=== PATIENT | female | born 1955 | race Caucasian/White ===

== ENCOUNTER 2020-09-16 16:01 | Inpatient (IN) ==
[2020-09-16] MEDS ORDERED: INFLUENZA VIRUS VACCINE 0.5 ML SYRINGE IM ONE (18:55)
[2020-09-16] MEDS ORDERED: oxyCODONE/ACETAMINOPHEN 5-325 MG TABLET PO PRN (20:06)
[2020-09-16] MEDS ORDERED: DEXTROSE 50% 25 GM/50 ML VIAL IV PRN (20:08)
[2020-09-16] MEDS ORDERED: GLUCAGON 1 MG VIAL IM PRN (20:08)
[2020-09-16] MEDS ORDERED: POTASSIUM CHLORIDE 20 MEQ TABLET PO ONE (20:09)
[2020-09-16] MEDS ORDERED: KETOROLAC 15 MG/1 ML VIAL IM PRN (20:47)
[2020-09-16] MEDS ORDERED: INSULIN GLARGINE 100 UNIT/ML SUBCUT SCH (21:00)
[2020-09-16] MEDS ORDERED: methylPREDNISolone SOD SUC 40 MG/1 ML VIAL IM SCH (21:00)
[2020-09-16] MEDS: APIXABAN 5 MG TABLET PO SCH (21:58)
[2020-09-16] MEDS: BUDESONIDE/FORMOTEROL 160-4.5 INHALER 6 GM INH SCH (22:00)
[2020-09-16] MEDS: SODIUM CHLORIDE 0.9% 1,000 ML IV SCH (22:02)
[2020-09-17] MEDS: methylPREDNISolone SOD SUC 40 MG/1 ML VIAL IV SCH ×3 (00:01→13:10)
[2020-09-17] MEDS: ALBUTEROL/IPRATROPIUM 3 ML NEB RESP TX SCH ×4 (01:30→20:25)
[2020-09-17 07:17] LABS: Basophils % 0.1 % (0.0-0.8); Hematocrit 33.2 VOL% (35.7-47.0); Hemoglobin 11.1 GM/DL (12.0-16.0); Immature Granulocytes % 0.7 %; Immature Granulocytes Absolute 0.07 #; Lymphocytes # 0.7 10*3/uL (1.4-4.0); Lymphocytes % 7.4 % (21.3-54.2); Mean Corpuscular HGB Conc 33.4 GM/DL (32-36); Mean Corpuscular Volume 88.3 FL (87-102); Mean Platelet Volume 11.3 FL (9.6-12.0); Monocytes % 2.8 % (1.7-12.7); Platelet Count 113 T/CUMM (130-400); Red Blood Count 3.76 MC/CUMM (3.8-5.5); Red Cell Distribution Width 13.4 % (9.3-17.3); White Blood Count 9.7 T/CUMM (4-12)
[2020-09-17 07:23] LABS: Bilirubin,Total 1.2 MG/DL (0.2-1.0); Calcium 8.4 MG/DL (8.5-10.1); Osmolality,Calculated 270.5 MOS/KG (273-304); Total Protein 7.1 G/DL (6.4-8.3)
[2020-09-17] MEDS ORDERED: INSULIN LISPRO 100 UNIT/ML SUBCUT SCH (08:00)
[2020-09-17] MEDS ORDERED: CLOPIDOGREL 75 MG TABLET PO SCH (09:00)
[2020-09-17] MEDS ORDERED: FUROSEMIDE 20 MG TABLET PO SCH (09:00)
[2020-09-17] MEDS: glipiZIDE 10 MG TABLET PO SCH (09:02)
[2020-09-17] MEDS: APIXABAN 5 MG TABLET PO SCH ×2 (09:02→22:22)
[2020-09-17] MEDS: AZITHROMYCIN 250 MG TABLET PO SCH (09:03)
[2020-09-17] MEDS: INSULIN LISPRO 100 UNIT/ML SUBCUT SCH ×3 (09:03→16:54)
[2020-09-17] MEDS: amLODIPine 10 MG TABLET PO SCH (09:03)
[2020-09-17] MEDS: PANTOPRAZOLE 40 MG TABLET PO SCH (09:03)
[2020-09-17] MEDS: PARoxetine 20 MG TABLET PO SCH (09:03)
[2020-09-17] MEDS: BUDESONIDE/FORMOTEROL 160-4.5 INHALER 6 GM INH SCH ×2 (09:04→22:23)
[2020-09-17] MEDS: oxyCODONE/ACETAMINOPHEN 5-325 MG TABLET PO PRN ×2 (10:18→22:23)
[2020-09-17] MEDS ORDERED: DEXTROSE 50% 25 GM/50 ML VIAL IV PRN (10:54)
[2020-09-17] MEDS: SODIUM CHLORIDE 0.9% 1,000 ML IV SCH (12:05)
[2020-09-17] MEDS ORDERED: PNEUMOCOCCAL VACCINE (13 VALENT) 0.5 ML SYRINGE IM ONE (16:00)
[2020-09-17] MEDS: INSULIN GLARGINE 100 UNIT/ML SUBCUT SCH (22:22)
[2020-09-18] MEDS: ALBUTEROL/IPRATROPIUM 3 ML NEB RESP TX SCH ×4 (01:48→19:26)
[2020-09-18] MEDS: INSULIN LISPRO 100 UNIT/ML SUBCUT SCH ×3 (09:23→18:02)
[2020-09-18] MEDS: AZITHROMYCIN 250 MG TABLET PO SCH (09:23)
[2020-09-18] MEDS: PANTOPRAZOLE 40 MG TABLET PO SCH (09:23)
[2020-09-18] MEDS: APIXABAN 5 MG TABLET PO SCH ×2 (09:23→22:28)
[2020-09-18] MEDS: glipiZIDE 10 MG TABLET PO SCH (09:23)
[2020-09-18] MEDS: oxyCODONE/ACETAMINOPHEN 5-325 MG TABLET PO PRN (09:24)
[2020-09-18] MEDS: PARoxetine 20 MG TABLET PO SCH (09:24)
[2020-09-18] MEDS: amLODIPine 10 MG TABLET PO SCH (09:24)
[2020-09-18] MEDS: ASPIRIN EC 81 MG TABLET PO SCH (09:25)
[2020-09-18] MEDS: BUDESONIDE/FORMOTEROL 160-4.5 INHALER 6 GM INH SCH ×2 (09:31→22:29)
[2020-09-18] MEDS ORDERED: PREGABALIN 100 MG CAPSULE PO ONE ×2 (20:28→21:00)
[2020-09-18] MEDS: ROSUVASTATIN 10 MG TABLET PO SCH (22:28)
[2020-09-18] MEDS: INSULIN GLARGINE 100 UNIT/ML SUBCUT SCH (22:29)
[2020-09-18] MEDS ORDERED: ONDANSETRON 4 MG/2 ML VIAL IV PRN (23:42)
[2020-09-19 00:02] LABS: ABG Base Excess 6.2 MMOL/L (-2.5-2.5); ABG HCO3 29.4 MMOL/L (20-26); ABG Oxygen Saturation 84.5 % (95-100); ABG PCO2 37.3 MM HG (35-48); ABG PH 7.515 (7.35-7.45); ABG PO2 44.2 MM HG (80-95); ABG TCO2 30.6 MMOL/L (23-27)
[2020-09-19] MEDS ORDERED: ACETAMINOPHEN 500 MG TABLET PO PRN (00:36)
[2020-09-19] MEDS: ALBUTEROL/IPRATROPIUM 3 ML NEB RESP TX SCH ×4 (01:08→19:25)
[2020-09-19 01:20] LABS: Calcium 8.8 MG/DL (8.5-10.1); Osmolality,Calculated 280.8 MOS/KG (273-304)
[2020-09-19 01:23] LABS: Risk Ratio 2.48; VLDL CHOLESTEROL 15.8 MG/DL
[2020-09-19 02:00] LABS: Basophils % 0.1 % (0.0-0.8); Eosinophils % 0.2 % (0.00-10.9); Hematocrit 34.3 VOL% (35.7-47.0); Immature Granulocytes % 1.6 %; Immature Granulocytes Absolute 0.19 #; Lymphocytes # 1.1 10*3/uL (1.4-4.0); Lymphocytes % 8.6 % (21.3-54.2); Mean Corpuscular HGB Conc 32.1 GM/DL (32-36); Mean Corpuscular Volume 91.7 FL (87-102); Monocytes % 8.2 % (1.7-12.7); Neutrophils % 81.3 % (38.7-73.9); Platelet Count 112 T/CUMM (130-400); Red Blood Count 3.74 MC/CUMM (3.8-5.5); Red Cell Distribution Width 14.4 % (9.3-17.3); White Blood Count 12.2 T/CUMM (4-12)
[2020-09-19] MEDS ORDERED: cefTRIAXone 1,000 MG in SYRINGE 1 EACH IV SCH (05:00)
[2020-09-19 05:39] LABS: ABG Base Excess 5.8 MMOL/L (-2.5-2.5); ABG HCO3 29.7 MMOL/L (20-26); ABG Oxygen Saturation 98.4 % (95-100); ABG PCO2 43.4 MM HG (35-48); ABG PH 7.454 (7.35-7.45); ABG TCO2 27.3 MMOL/L (23-27)
[2020-09-19] MEDS: VANCOMYCIN INJ 2,000 MG in SODIUM CHLORIDE 0.9% 500 ML IV SCH ×2 (06:34→18:40)
[2020-09-19] MEDS ORDERED: cefTRIAXone 2,000 MG in SYRINGE 1 EACH IV SCH (09:00)
[2020-09-19] MEDS: glipiZIDE 10 MG TABLET PO SCH (09:42)
[2020-09-19] MEDS: APIXABAN 5 MG TABLET PO SCH ×2 (09:42→22:03)
[2020-09-19] MEDS: PARoxetine 20 MG TABLET PO SCH (09:42)
[2020-09-19] MEDS: INSULIN LISPRO 100 UNIT/ML SUBCUT SCH ×3 (09:42→16:41)
[2020-09-19] MEDS: ASPIRIN EC 81 MG TABLET PO SCH (09:42)
[2020-09-19] MEDS: AZITHROMYCIN 250 MG TABLET PO SCH (09:42)
[2020-09-19] MEDS: PANTOPRAZOLE 40 MG TABLET PO SCH (09:43)
[2020-09-19] MEDS: amLODIPine 10 MG TABLET PO SCH (09:43)
[2020-09-19] MEDS: BUDESONIDE/FORMOTEROL 160-4.5 INHALER 6 GM INH SCH ×2 (09:43→22:03)
[2020-09-19 12:51] LABS: Bacteria,Urine Occasional /HPF (Few); Bilirubin,Urine Negative (Negative); Blood, Urine Negative (Negative); Glucose,Urine (UA) Negative (Negative); Hyaline Casts,Urine 1 /LPF (0-3); Ketones,Urine Negative (Negative); Mucus,Urine Occasional /LPF (Occasional); Nitrite,Urine Negative (Negative); Protein,Urine 30 MG/DL; RBC,Urine 2 /HPF (0-4); Squamous Epithelial Cell,Urine Occasional /HPF (0-10); Urine Appearance CLEAR (Clear); Urine Color Yellow (Yellow); Urine Specific Gravity 1.027 (1.001-1.035); Urine Urobilinogen < 2.0 EU/DL (0.2-1.0); WBC,Urine 5 /HPF (0-6)
[2020-09-19] MEDS: FUROSEMIDE 20 MG/2 ML VIAL IV SCH (18:45)
[2020-09-19] MEDS: PIPERACILLIN/TAZOBACTAM 3,375 MG in SODIUM CHLORIDE 0.9% 100 ML IV SCH (22:02)
[2020-09-19] MEDS: INSULIN GLARGINE 100 UNIT/ML SUBCUT SCH (22:03)
[2020-09-19] MEDS: ROSUVASTATIN 10 MG TABLET PO SCH (22:03)
[2020-09-20] MEDS: ALBUTEROL/IPRATROPIUM 3 ML NEB RESP TX SCH ×4 (03:04→19:05)
[2020-09-20] MEDS: VANCOMYCIN INJ 2,000 MG in SODIUM CHLORIDE 0.9% 500 ML IV SCH ×2 (05:10→17:36)
[2020-09-20 06:19] LABS: Basophils % 0.2 % (0.0-0.8); Eosinophils # 0.1 10*3/uL (0.0-0.87); Eosinophils % 1.7 % (0.00-10.9); Hematocrit 31.2 VOL% (35.7-47.0); Hemoglobin 10.1 GM/DL (12.0-16.0); Immature Granulocytes % 0.6 %; Immature Granulocytes Absolute 0.04 #; Lymphocytes # 1.3 10*3/uL (1.4-4.0); Lymphocytes % 20.5 % (21.3-54.2); Mean Corpuscular HGB Conc 32.4 GM/DL (32-36); Mean Corpuscular Volume 91.8 FL (87-102); Mean Platelet Volume 10.8 FL (9.6-12.0); Monocytes % 5.4 % (1.7-12.7); Neutrophils % 71.6 % (38.7-73.9); Platelet Count 90 T/CUMM (130-400); Red Cell Distribution Width 14.4 % (9.3-17.3); White Blood Count 6.3 T/CUMM (4-12)
[2020-09-20 06:41] LABS: Hypochromasia 1+; Microcytosis 1+
[2020-09-20 06:42] LABS: Platelet Estimate Decreased
[2020-09-20 06:43] LABS: Calcium 8.6 MG/DL (8.5-10.1); Osmolality,Calculated 274.7 MOS/KG (273-304)
[2020-09-20 07:31] LABS: Calcium 8.4 MG/DL (8.5-10.1); Osmolality,Calculated 276.5 MOS/KG (273-304)
[2020-09-20] MEDS: PIPERACILLIN/TAZOBACTAM 3,375 MG in SODIUM CHLORIDE 0.9% 100 ML IV SCH ×3 (07:34→21:09)
[2020-09-20] MEDS: FUROSEMIDE 20 MG/2 ML VIAL IV SCH (09:15)
[2020-09-20] MEDS: INSULIN LISPRO 100 UNIT/ML SUBCUT SCH ×3 (09:15→16:20)
[2020-09-20] MEDS: APIXABAN 5 MG TABLET PO SCH ×2 (09:41→21:07)
[2020-09-20] MEDS: glipiZIDE 10 MG TABLET PO SCH (09:41)
[2020-09-20] MEDS: AZITHROMYCIN 250 MG TABLET PO SCH (09:41)
[2020-09-20] MEDS: amLODIPine 10 MG TABLET PO SCH (09:41)
[2020-09-20] MEDS: PANTOPRAZOLE 40 MG TABLET PO SCH (09:41)
[2020-09-20] MEDS: PARoxetine 20 MG TABLET PO SCH (09:41)
[2020-09-20] MEDS: ASPIRIN EC 81 MG TABLET PO SCH (09:41)
[2020-09-20] MEDS: oxyCODONE/ACETAMINOPHEN 5-325 MG TABLET PO PRN (09:49)
[2020-09-20] MEDS: FUROSEMIDE 40 MG/4 ML VIAL IV SCH ×2 (10:00→17:34)
[2020-09-20] MEDS: BUDESONIDE/FORMOTEROL 160-4.5 INHALER 6 GM INH SCH ×2 (10:01→21:07)
[2020-09-20] MEDS ORDERED: POTASSIUM CHLORIDE 20 MEQ TABLET PO ONE (11:25)
[2020-09-20] MEDS: LISINOPRIL/HCTZ 10-12.5 MG TABLET PO SCH (11:45)
[2020-09-20] MEDS: ASCORBIC ACID 500 MG TABLET PO SCH ×2 (11:45→21:07)
[2020-09-20] MEDS: buPROPion SR 100 MG TABLET PO SCH (21:06)
[2020-09-20] MEDS: ROSUVASTATIN 10 MG TABLET PO SCH (21:07)
[2020-09-20] MEDS: INSULIN GLARGINE 100 UNIT/ML SUBCUT SCH (21:07)
[2020-09-21] MEDS: ALBUTEROL/IPRATROPIUM 3 ML NEB RESP TX SCH ×4 (01:41→19:42)
[2020-09-21] MEDS: VANCOMYCIN INJ 2,000 MG in SODIUM CHLORIDE 0.9% 500 ML IV SCH ×2 (05:46→17:44)
[2020-09-21 05:47] LABS: Basophils % 0.1 % (0.0-0.8); Eosinophils # 0.3 10*3/uL (0.0-0.87); Eosinophils % 3.4 % (0.00-10.9); Hematocrit 32.4 VOL% (35.7-47.0); Hemoglobin 10.4 GM/DL (12.0-16.0); Immature Granulocytes % 0.4 %; Immature Granulocytes Absolute 0.03 #; Lymphocytes # 1.5 10*3/uL (1.4-4.0); Lymphocytes % 20.3 % (21.3-54.2); Mean Corpuscular HGB Conc 32.1 GM/DL (32-36); Mean Platelet Volume 10.3 FL (9.6-12.0); Monocytes % 6.1 % (1.7-12.7); Neutrophils % 69.7 % (38.7-73.9); Platelet Count 104 T/CUMM (130-400); Red Blood Count 3.52 MC/CUMM (3.8-5.5); Red Cell Distribution Width 13.9 % (9.3-17.3); White Blood Count 7.3 T/CUMM (4-12)
[2020-09-21 06:03] LABS: Calcium 8.3 MG/DL (8.5-10.1); Osmolality,Calculated 277.4 MOS/KG (273-304)
[2020-09-21 06:11] LABS: Hypochromasia 1+; Microcytosis 1+; Platelet Estimate Decreased
[2020-09-21] MEDS: BUDESONIDE/FORMOTEROL 160-4.5 INHALER 6 GM INH SCH ×2 (09:51→21:55)
[2020-09-21] MEDS: glipiZIDE 10 MG TABLET PO SCH (09:51)
[2020-09-21] MEDS: ASPIRIN EC 81 MG TABLET PO SCH (09:51)
[2020-09-21] MEDS: buPROPion SR 100 MG TABLET PO SCH ×2 (09:51→21:52)
[2020-09-21] MEDS: amLODIPine 10 MG TABLET PO SCH (09:52)
[2020-09-21] MEDS: AZITHROMYCIN 250 MG TABLET PO SCH (09:52)
[2020-09-21] MEDS: ASCORBIC ACID 500 MG TABLET PO SCH ×2 (09:52→21:52)
[2020-09-21] MEDS: APIXABAN 5 MG TABLET PO SCH ×2 (09:52→21:53)
[2020-09-21] MEDS: PANTOPRAZOLE 40 MG TABLET PO SCH (09:52)
[2020-09-21] MEDS: INSULIN LISPRO 100 UNIT/ML SUBCUT SCH ×3 (09:53→17:44)
[2020-09-21] MEDS: FUROSEMIDE 40 MG/4 ML VIAL IV SCH ×2 (09:53→16:21)
[2020-09-21] MEDS: PIPERACILLIN/TAZOBACTAM 3,375 MG in SODIUM CHLORIDE 0.9% 100 ML IV SCH ×3 (09:54→23:47)
[2020-09-21] MEDS: LISINOPRIL/HCTZ 10-12.5 MG TABLET PO SCH (09:54)
[2020-09-21] MEDS: ROSUVASTATIN 10 MG TABLET PO SCH (21:53)
[2020-09-21] MEDS: INSULIN GLARGINE 100 UNIT/ML SUBCUT SCH (21:56)
[2020-09-22] MEDS: ALBUTEROL/IPRATROPIUM 3 ML NEB RESP TX SCH ×4 (00:45→19:06)
[2020-09-22 05:41] LABS: Basophils % 0.2 % (0.0-0.8); Eosinophils # 0.2 10*3/uL (0.0-0.87); Eosinophils % 3.9 % (0.00-10.9); Hematocrit 31.2 VOL% (35.7-47.0); Hemoglobin 10.1 GM/DL (12.0-16.0); Immature Granulocytes % 0.3 %; Immature Granulocytes Absolute 0.02 #; Lymphocytes # 1.2 10*3/uL (1.4-4.0); Lymphocytes % 19.9 % (21.3-54.2); Mean Corpuscular HGB Conc 32.4 GM/DL (32-36); Mean Corpuscular Volume 91.2 FL (87-102); Mean Platelet Volume 10.4 FL (9.6-12.0); Monocytes % 7.2 % (1.7-12.7); Neutrophils % 68.5 % (38.7-73.9); Platelet Count 101 T/CUMM (130-400); Red Blood Count 3.42 MC/CUMM (3.8-5.5); Red Cell Distribution Width 13.8 % (9.3-17.3); White Blood Count 6.1 T/CUMM (4-12)
[2020-09-22 06:13] LABS: Calcium 8.4 MG/DL (8.5-10.1); Osmolality,Calculated 279.3 MOS/KG (273-304)
[2020-09-22 06:19] LABS: Calcium 8.5 MG/DL (8.5-10.1); Osmolality,Calculated 277.4 MOS/KG (273-304)
[2020-09-22] MEDS: VANCOMYCIN INJ 2,000 MG in SODIUM CHLORIDE 0.9% 500 ML IV SCH ×2 (06:35→20:02)
[2020-09-22] MEDS ORDERED: MAGNESIUM SULF RIDER 2 GM in PREMIX 1 EACH IV ONE (07:37)
[2020-09-22] MEDS ORDERED: POTASSIUM CHLORIDE 20 MEQ TABLET PO ONE ×2 (07:37→11:43)
[2020-09-22 08:46] LABS: Infliximab, S < 1.0 mcg/mL
[2020-09-22] MEDS: ASPIRIN EC 81 MG TABLET PO SCH (09:48)
[2020-09-22] MEDS: LISINOPRIL/HCTZ 10-12.5 MG TABLET PO SCH (09:48)
[2020-09-22] MEDS: amLODIPine 10 MG TABLET PO SCH (09:48)
[2020-09-22] MEDS: PANTOPRAZOLE 40 MG TABLET PO SCH (09:49)
[2020-09-22] MEDS: ASCORBIC ACID 500 MG TABLET PO SCH ×2 (09:49→21:59)
[2020-09-22] MEDS: glipiZIDE 10 MG TABLET PO SCH (09:49)
[2020-09-22] MEDS: FUROSEMIDE 40 MG/4 ML VIAL IV SCH (09:49)
[2020-09-22] MEDS: APIXABAN 5 MG TABLET PO SCH ×2 (09:49→22:00)
[2020-09-22] MEDS: INSULIN LISPRO 100 UNIT/ML SUBCUT SCH ×3 (09:49→16:41)
[2020-09-22] MEDS: PIPERACILLIN/TAZOBACTAM 3,375 MG in SODIUM CHLORIDE 0.9% 100 ML IV SCH ×3 (09:50→23:54)
[2020-09-22] MEDS: BUDESONIDE/FORMOTEROL 160-4.5 INHALER 6 GM INH SCH ×2 (09:51→22:01)
[2020-09-22] MEDS ORDERED: LOPERAMIDE 2 MG CAPSULE PO ONE (10:17)
[2020-09-22] MEDS ORDERED: buPROPion SR 100 MG TABLET PO ONE (11:00)
[2020-09-22] MEDS: buPROPion SR 100 MG TABLET PO SCH ×2 (12:00→21:58)
[2020-09-22] MEDS: FUROSEMIDE 40 MG TABLET PO SCH (16:41)
[2020-09-22] MEDS: oxyCODONE/ACETAMINOPHEN 5-325 MG TABLET PO PRN (18:05)
[2020-09-22] MEDS: ROSUVASTATIN 10 MG TABLET PO SCH (21:57)
[2020-09-22] MEDS: INSULIN GLARGINE 100 UNIT/ML SUBCUT SCH (22:01)
[2020-09-23] MEDS: ALBUTEROL/IPRATROPIUM 3 ML NEB RESP TX SCH ×3 (00:08→18:17)
[2020-09-23] MEDS: VANCOMYCIN INJ 2,000 MG in SODIUM CHLORIDE 0.9% 500 ML IV SCH (05:10)
[2020-09-23 06:10] LABS: Basophils % 0.3 % (0.0-0.8); Eosinophils # 0.2 10*3/uL (0.0-0.87); Eosinophils % 2.7 % (0.00-10.9); Hematocrit 33.9 VOL% (35.7-47.0); Hemoglobin 10.6 GM/DL (12.0-16.0); Immature Granulocytes % 0.5 %; Immature Granulocytes Absolute 0.03 #; Lymphocytes # 1.1 10*3/uL (1.4-4.0); Lymphocytes % 16.6 % (21.3-54.2); Mean Corpuscular HGB Conc 31.3 GM/DL (32-36); Mean Corpuscular Volume 92.6 FL (87-102); Mean Platelet Volume 10.2 FL (9.6-12.0); Monocytes % 8.8 % (1.7-12.7); Neutrophils % 71.1 % (38.7-73.9); Platelet Count 102 T/CUMM (130-400); Red Blood Count 3.66 MC/CUMM (3.8-5.5); Red Cell Distribution Width 13.9 % (9.3-17.3); White Blood Count 6.3 T/CUMM (4-12)
[2020-09-23 06:24] LABS: Calcium 8.6 MG/DL (8.5-10.1); Osmolality,Calculated 282.1 MOS/KG (273-304)
[2020-09-23] MEDS ORDERED: AMOXICILLIN/CLAV 875 MG TABLET PO SCH (09:00)
[2020-09-23] MEDS: INSULIN LISPRO 100 UNIT/ML SUBCUT SCH ×3 (09:08→15:59)
[2020-09-23] MEDS: PIPERACILLIN/TAZOBACTAM 3,375 MG in SODIUM CHLORIDE 0.9% 100 ML IV SCH (09:09)
[2020-09-23] MEDS: APIXABAN 5 MG TABLET PO SCH (09:19)
[2020-09-23] MEDS: ASCORBIC ACID 500 MG TABLET PO SCH (09:19)
[2020-09-23] MEDS: buPROPion SR 100 MG TABLET PO SCH (09:19)
[2020-09-23] MEDS: LISINOPRIL/HCTZ 10-12.5 MG TABLET PO SCH (09:19)
[2020-09-23] MEDS: amLODIPine 10 MG TABLET PO SCH (09:19)
[2020-09-23] MEDS: glipiZIDE 10 MG TABLET PO SCH (09:20)
[2020-09-23] MEDS: PANTOPRAZOLE 40 MG TABLET PO SCH (09:20)
[2020-09-23] MEDS: FUROSEMIDE 40 MG TABLET PO SCH (09:20)
[2020-09-23] MEDS: ASPIRIN EC 81 MG TABLET PO SCH (09:20)
[2020-09-23] MEDS: BUDESONIDE/FORMOTEROL 160-4.5 INHALER 6 GM INH SCH (09:22)
[2020-09-23 09:57] LABS: Calcium 8.5 MG/DL (8.5-10.1); Osmolality,Calculated 286.5 MOS/KG (273-304)
[2020-09-23] MEDS ORDERED: guaiFENesin/DM ER 600-30 MG TABLET PO SCH (10:30)
[2020-09-23] MEDS ORDERED: FLUCONAZOLE 150 MG TABLET PO ONE (14:27)
[2020-09-23] MEDS ORDERED: NYSTATIN CREAM 15 GM TUBE TOP SCH (14:27)
[2020-09-23 17:42] VITALS: BP 151/51
[2020-09-24] MEDS ORDERED: FUROSEMIDE 40 MG TABLET PO SCH (09:00)
== END 2020-09-23 18:36 | disposition home or self-care (01) | DRG 190 ==
LOC: N.TELES → SUATTDRO 17:54
PROVIDERS: ADMIT Internal Medicine; ATTEND Hospitalist